=== PATIENT | male | born 1980 | race Caucasian/White ===

== ENCOUNTER 2020-12-19 12:28 | Emergency (ER) | payer OTHER | END 2020-12-19 13:35 | disposition home or self-care (01) | LOC: FER 12:28 | DX: R07.89 Other chest pain (principal); R42 Dizziness and giddiness | CPT/HCPCS: 36415; 71046; 84484; 93005 ==

== ENCOUNTER 2021-12-24 15:46 | Emergency (ER) | payer OTHER ==
[2021-12-24 17:53] LABS: BASOPHIL 0.3 % (0-2); EOSINOPHIL 0.9 % (0-5); HCT 44.2 % (42.0-52.0); HGB 14.9 g/dl (13.2-18.0); LYMPHOCYTE 39.9 % (15-48); MCH 29.6 pg (25.0-31.0); MCHC 33.7 g/dL (32.0-36.0); MCV 87.7 fL (78.0-100.0); MONOCYTE 5.8 % (0-12); MPV 10.7 fL (6.0-9.5); NEUTROPHIL 52.9 % (41-80); NRBC 0; PLT 191 K/uL (150-400); RBC 5.04 M/uL (4.70-6.00); RDW 12.2 % (11.5-14.0); WBC 12.7 K/uL (4.0-10.5)
[2021-12-24 18:12] LABS: BUN/CREAT RATIO (CALC) 17.7 RATIO; CREATININE 0.96 mg/dL (0.67-1.17); POTASSIUM 4.5 mmol/L (3.5-5.1)
[2021-12-24] MEDS ORDERED: ZPAK PO (21:24)
[2021-12-24] MEDS ORDERED: VENTOLIN HFA IN18 GM INH (21:24)
[2021-12-24] MEDS ORDERED: MEDROL 4MG DOSEP4 MG PO (21:24)
== END 2021-12-24 21:42 | disposition home or self-care (01) ==
LOC: FER 15:46
PROVIDERS: Nurse Practitioner Family
DX: U07.1 COVID-19 (principal); J44.1 Chronic obstructive pulmonary disease with (acute) exacerbation
CPT/HCPCS: 36415; 71045; 71275; 80048; 85025; 85379; J1100; J7030; Q9967

== ENCOUNTER 2022-01-31 17:27 | Emergency (ER) | payer OTHER ==
[~2022-01-31 17:27] MED LIST: MEDROL 4MG DOSEP4 MG PO; VENTOLIN HFA IN18 GM INH; ZPAK PO
[2022-01-31 19:11] LABS: BASOPHIL 0.7 % (0-2); EOSINOPHIL 2.5 % (0-5); HCT 42.6 % (42.0-52.0); MCH 29.4 pg (25.0-31.0); MCHC 32.9 g/dL (32.0-36.0); MCV 89.3 fL (78.0-100.0); MONOCYTE 9.7 % (0-12); MPV 10.2 fL (6.0-9.5); NEUTROPHIL 29.9 % (41-80); NRBC 0; PLT 191 K/uL (150-400); RBC 4.77 M/uL (4.70-6.00); RDW 12.8 % (11.5-14.0); WBC 9.2 K/uL (4.0-10.5)
[2022-01-31 19:27] LABS: CREATININE 1.06 mg/dL (0.67-1.17); POTASSIUM 3.8 mmol/L (3.5-5.1)
[2022-01-31] MEDS ORDERED: VENTOLIN (2.5 MG/3 M INH (20:09)
[2022-01-31] MEDS ORDERED: NEBULIZER UNIT NEB (20:09)
[2022-01-31] MEDS ORDERED: PREDNISONE 20MG20 MG PO (20:09)
== END 2022-01-31 20:21 | disposition home or self-care (01) ==
LOC: FER 17:27
PROVIDERS: Nurse Practitioner Family
DX: J44.1 Chronic obstructive pulmonary disease with (acute) exacerbation (principal); F17.210 Nicotine dependence, cigarettes, uncomplicated; Z79.51 Long term (current) use of inhaled steroids
CPT/HCPCS: 36415; 71046; 80048; 85025; 94640; 94664; J2930